=== PATIENT | male | born 1965 | race American Indian/Alaskan Native ===

== ENCOUNTER 2016-10-07 21:09 | Emergency (ER) | payer SELFPAY ==
[~2016-10-07] VITALS: Ht 157.5 cm; Wt 74.9 kg
[~2016-10-07 21:09] MED LIST: ANUS PO; CIPR500T4 PO; OMEP20TC10 PO; PEP15L PO; RANI-287 PO
[2016-10-07 21:43] VITALS: BP 141/84
--- NOTE | 2016-10-08 01:47 | NUR ---
PATIENT LEFT WITHOUT BEING SEEN BY DR. RAY. NO FURTHER CARE PROVIDED FOR PATIENT.
== END 2016-10-08 01:47 | disposition left against medical advice (07) ==
LOC: MED 21:09
DX: H57.11 Ocular pain, right eye (principal); Z53.21 Procedure and treatment not carried out due to patient leaving prior to being seen by health care provider

== ENCOUNTER 2023-11-10 12:10 | Emergency (ER) | payer OTHER ==
[~2023-11-10] VITALS: Ht 162.6 cm; Wt 72.6 kg
[~2023-11-10 12:10] MED LIST changes: -ANUS PO; +OMEP-303 PO; -OMEP20TC10 PO; +PHEN1SUP7 PO
[2023-11-10 12:23] VITALS: BP 166/87; PULSE 98; RESP 18; TEMP 97.3; O2SAT 100
[2023-11-10] MEDS: ACETAMINOPHEN 325 MG TAB PO ONE (12:41)
[2023-11-10] MEDS ORDERED: METH-1681 PO (13:31)
[2023-11-10] MEDS ORDERED: IBUP-2213 PO (13:31)
[2023-11-10] MEDS ORDERED: LID5T TP (13:31)
== END 2023-11-10 13:48 | disposition home or self-care (01) ==
LOC: MED 12:10
DX: S22.31XA Fracture of one rib, right side, initial encounter for closed fracture (principal); W18.39XA Other fall on same level, initial encounter; Y92.89 Other specified places as the place of occurrence of the external cause; Y93.89 Activity, other specified; Y99.8 Other external cause status
CPT/HCPCS: 71101; 99283